=== PATIENT | male | born 1955 | race Caucasian/White ===

== ENCOUNTER → 2016-05-11 | Outpatient (CLI) | payer BC ==
[~2016-05-11] MED LIST: ASPI325T39 PO; ATOR-26 PO; METO-217 PO; MRP25 PO; ZLF/50 PO
[2016-05-11 12:53] LABS: HEMATOCRIT 40.5 % (42-52); MEAN CELL VOLUME 88.6 fL (80-100); MEAN CORPUSCULAR HEMOGLOBIN 31.3 pg (25-34); MEAN CORPUSCULAR HGB CONC 35.3 g/dl (32-36); MEAN PLATELET VOLUME 10.9 fL (7.4-10.4); PLATELET COUNT 259 K/uL (130-400); RED BLOOD COUNT 4.57 M/uL (4.7-6.1); WHITE BLOOD COUNT 6.18 K/uL (4.8-10.8)
[2016-05-11 13:06] LABS: ALT/SGPT 38 U/L (12-78); BLOOD UREA NITROGEN 17 mg/dl (7-18); BUN/CREATININE RATIO 15.5 (10-20); CALCIUM 8.9 mg/dl (8.5-10.1); CARBON DIOXIDE 25 mmol/L (21-32); CHLORIDE 107 mmol/L (98-107); GLUCOSE 99 mg/dl (70-99); POTASSIUM 4.2 mmol/L (3.5-5.1); SODIUM 141 mmol/L (136-145)
[2016-05-11 13:09] LABS: ESTIMATED AVERAGE GLUCOSE 114 mg/dl; HA1C FLAG Normal (Normal)
[2016-05-11 13:10] LABS: ALB/GLOB RATIO 1.2 (0.9-2); ALKALINE PHOSPHATASE 91 U/L (45-117); AST/SGOT 23 U/L (15-37); CHOLESTEROL 129 mg/dl (0-200); CHOLESTEROL/HDL RATIO 3.2; HDL CHOLESTEROL 40 mg/dl; LDL CHOLESTEROL CALCULATED 55 mg/dl; PROSTATE SPECIFIC ANTIGEN 0.619 ng/ml (0.000-4.000); TRIGLYCERIDES 171 mg/dl (0-150); VERY LOW DENSITY LIPOPROT CALC 34 mg/dl
== END | disposition home or self-care (01) ==
LOC: C.LABBFT 11:06
PROVIDERS: ATTEND Internal Medicine Cardiovascular Disease
DX: Z00.00 Encounter for general adult medical examination without abnormal findings (principal); K21.9 Gastro-esophageal reflux disease without esophagitis; I25.10 Atherosclerotic heart disease of native coronary artery without angina pectoris; Z12.5 Encounter for screening for malignant neoplasm of prostate; R73.01 Impaired fasting glucose

== ENCOUNTER → 2017-05-15 | Outpatient (CLI) | payer BC ==
[2017-05-15 18:00] LABS: HEMATOCRIT 39.5 % (42-52); HEMOGLOBIN 13.8 g/dL (14.0-18.0); MEAN CELL VOLUME 90.8 fL (80-100); MEAN CORPUSCULAR HEMOGLOBIN 31.7 pg (25-34); MEAN CORPUSCULAR HGB CONC 34.9 g/dl (32-36); MEAN PLATELET VOLUME 10.7 fL (7.4-10.4); PLATELET COUNT 222 K/uL (130-400); RED CELL DISTRIBUTION WIDTH CV 12.8 % (11.5-14.5); RED CELL DISTRIBUTION WIDTH SD 42.4 fL (36.4-46.3)
[2017-05-15 18:01] LABS: ALBUMIN 3.7 gm/dl (3.4-5.0); ALT/SGPT 36 U/L (12-78); AST/SGOT 24 U/L (15-37); BLOOD UREA NITROGEN 23 mg/dl (7-18); CALCIUM 8.7 mg/dl (8.5-10.1); CARBON DIOXIDE 25 mmol/L (21-32); CREATININE 1.05 mg/dl (0.60-1.40); GLUCOSE 115 mg/dl (70-99); POTASSIUM 3.8 mmol/L (3.5-5.1); SODIUM 138 mmol/L (136-145)
[2017-05-15 18:03] LABS: ALKALINE PHOSPHATASE 89 U/L (45-117); CHOLESTEROL 122 mg/dl (0-200); LDL CHOLESTEROL CALCULATED 56 mg/dl; TOTAL PROTEIN 6.8 gm/dl (6.4-8.2)
[2017-05-16 06:29] LABS: HEMOGLOBIN A1C 5.6 % (4.5-5.6)
== END | disposition home or self-care (01) ==
LOC: C.LABBFT 14:41
PROVIDERS: ATTEND Internal Medicine
DX: E78.5 Hyperlipidemia, unspecified (principal)

== ENCOUNTER → 2017-05-25 | Outpatient (CLI) | payer BC ==
[2017-05-25 17:43] LABS: BASO % 0.5 %; BASO ABS # 0.03 K/uL (0-0.2); EOS % 3.7 %; EOS ABS # 0.23 K/uL (0-0.5); HEMATOCRIT 41.1 % (42-52); HEMOGLOBIN 14.3 g/dL (14.0-18.0); IG# 0.01 K/uL (0.00-0.02); LYMPH % 33.2 %; LYMPH ABS # 2.08 K/uL (1.2-3.4); MEAN CELL VOLUME 89.9 fL (80-100); MEAN CORPUSCULAR HEMOGLOBIN 31.3 pg (25-34); MEAN CORPUSCULAR HGB CONC 34.8 g/dl (32-36); MEAN PLATELET VOLUME 10.6 fL (7.4-10.4); MONO % 10.1 %; MONO ABS # 0.63 K/uL (0.11-0.59); NEUT % 52.3 %; NEUT ABS # 3.28 K/uL (1.4-6.5); PLATELET COUNT 235 K/uL (130-400); RED CELL DISTRIBUTION WIDTH CV 12.6 % (11.5-14.5); RED CELL DISTRIBUTION WIDTH SD 41.2 fL (36.4-46.3); WHITE BLOOD COUNT 6.26 K/uL (4.8-10.8)
== END | disposition home or self-care (01) ==
LOC: C.LABBFT 15:30
PROVIDERS: ATTEND Internal Medicine
DX: D64.9 Anemia, unspecified (principal); Z12.5 Encounter for screening for malignant neoplasm of prostate

== ENCOUNTER → 2017-10-20 | Outpatient (CLI) | payer BC ==
[~2017-10-20] MED LIST changes: +ABL/5 PO; +ACET-1256 PO; +CYTM25 PO; +ESCI1TAB10 PO; -MRP25 PO; +PANT40TA PO; -ZLF/50 PO
--- NOTE | 2017-10-20 14:57 | DIAGNOSTIC IMAGING REPORT ---
CHEST 2 VIEWS ROUTINE CLINICAL HISTORY: PAT preoperative evaluation COMPARISON STUDY: 07/23/2015 FINDINGS: The bones soft tissues and hemidiaphragms are normal. The cardiomediastinal silhouette is normal. The lungs are clear. The pulmonary vasculature is normal. IMPRESSION: Negative chest. The above report was generated using voice recognition software. It may contain grammatical, syntax or spelling errors. Electronically signed by: Gibran Rodriguez M.D. 10/20/2017 2:55 PM Dictated Date/Time: 10/20/2017 2:55 PM
== END | disposition home or self-care (01) ==
LOC: C.RAD 13:59
PROVIDERS: ATTEND Orthopaedic Surgery Orthopaedic Surgery of the Spine
DX: Z01.810 Encounter for preprocedural cardiovascular examination (principal); Z01.811 Encounter for preprocedural respiratory examination; Z01.812 Encounter for preprocedural laboratory examination

== ENCOUNTER 2017-10-30 09:14 | Observation (INO) | payer BC ==
[2017-10-18 12:15] VITALS: BMI 35.0
--- NOTE | 2017-10-20 12:55 | PAT Medication Instructions ---
Service Date Oct 20, 2017. Current Home Medication List Acetaminophen (Tylenol), 1,000 MG PO Q6 PRN for Pain Aripiprazole (Abilify), 5 MG PO QPM Aspirin (Aspirin Ec), 325 MG PO QPM Atorvastatin (Lipitor), 80 MG PO HS Escitalopram Oxalate (Lexapro), 20 MG PO QAM Liothyronine Sodium (Liothyronine Sodium), 50 MCG PO QAM Metoprolol Succinate (Toprol Xl), 50 MG PO QAM Pantoprazole (Protonix), 40 MG PO QAM Medication Instructions For Your Scheduled Surgery - Check with surgeon and prescribing physician for instructions: Aspirin (Aspirin Ec), 325 MG PO QPM - Take the following medications the morning of surgery with a sip of water: Acetaminophen (Tylenol), 1,000 MG PO Q6 PRN for Pain (okay to take up to 4 hours prior to surgery if needed) Escitalopram Oxalate (Lexapro), 20 MG PO QAM Liothyronine Sodium (Liothyronine Sodium), 50 MCG PO QAM Metoprolol Succinate (Toprol Xl), 50 MG PO QAM Pantoprazole (Protonix), 40 MG PO QAM - Take the following medications as scheduled the night before surgery: Acetaminophen (Tylenol), 1,000 MG PO Q6 PRN for Pain (if needed) Aripiprazole (Abilify), 5 MG PO QPM Atorvastatin (Lipitor), 80 MG PO HS If you have any questions please call us at [phone] or [phone] or [phone]
[2017-10-20 14:12] VITALS: BMI 36.0
--- NOTE | 2017-10-27 16:58 | HISTORY & PHYSICAL EXAMINATION ---
DATE OF ADMISSION: 10/30/2017 He is being in preop for diskectomy L4-L5 lumbar. CHIEF COMPLAINT: Hip pain, leg pain, knee pain, and low back pain ongoing for several weeks, months, failing conservative care. PAST MEDICAL HISTORY: Heart disease, anxiety, high cholesterol. PAST SURGICAL HISTORY: Trigger finger release. ALLERGIES: Negative. FAMILY HISTORY: Heart disease. SOCIAL HISTORY: . Minimal alcohol. No tobacco. Active lifestyle. REVIEW OF SYSTEMS: Denies fevers, sweats, chills. Ears, nose, and throat negative. Denies chest pain, palpitations. No asthma, wheezing. No nausea, vomiting. Positive for depression. Denies skin rashes or lesions. He does have muscle pain, weakness, and cramping. MEDICATIONS: Oxycodone, cyclobenzaprine, prednisone, aspirin, Zocor, metoprolol. OBJECTIVE: GENERAL: He is 5 feet 7 inches. He is 225. He is in distress. He has back and lower extremity difficulty, sciatica, nerve root pain. VITAL SIGNS: Blood pressure 130/80, pulse 80, respirations 16. HEENT: Pupils react to light and accommodation. Ears, nose, and throat clear. CARDIAC: Normal S1, S2, no S3. LUNGS: Clear to auscultation. No rales, rhonchi, wheezing. ABDOMEN: Soft, nontender. MUSCULOSKELETAL: He has pain with flexion and extension of the spine. He has neurological deficit. He has weakness to his foot. He has gait abnormality. DIAGNOSIS: Disk herniation, lumbar spine. PLAN: Includes a diskectomy, L4-L5 lumbar spine.
[~2017-10-30] VITALS: Ht 170.2 cm; Wt 106.0 kg
[2017-10-30] VITALS (8 sets, daily range): BP systolic 127–159; BP diastolic 75–97; PULSE 61–69; TEMP 36.8–37; O2SAT 96–98; Ht 170.2 cm; Wt 106.0 kg
[~2017-10-30 09:14] MED LIST changes: +CEFAZOLIN 2000MG IV PUSH 15 ML IV SCH; +LACTATED RINGER'S 1000ML 1,000 ML IV SCH; +NSS 1000ML IV SCH
[2017-10-30] MEDS ORDERED: FENTANYL CITRATE INJ 50 MCG/1 ML 2 ML VIAL ONE ×2 (10:34→12:01)
[2017-10-30] MEDS ORDERED: MIDAZOLAM HCL 1 MG/ML 2ML VIAL ONE (10:34)
[2017-10-30] MEDS ORDERED: VANCOMYCIN HCL 1000MG/20ML VIAL ONE (11:20)
[2017-10-30] MEDS ORDERED: THROMBIN FOR SOLN 20000 UNIT KIT ONE (11:20)
[2017-10-30] MEDS ORDERED: GELATIN SPONGE SZ 100 ONE ×2 (11:20→11:26)
[2017-10-30] MEDS ORDERED: BUPIVACAINE/EPINEPHRINE 0.5% MPF 1:200,000 30 ML VIAL ONE (11:21)
[2017-10-30] MEDS ORDERED: BACITRACIN 50000 UNIT VIAL ONE (11:21)
[2017-10-30] MEDS ORDERED: ATROPINE SULFATE 0.1 MG/ML 5ML SYR IV PRN (11:30)
[2017-10-30] MEDS ORDERED: HYDROmorphone INJ 2 MG/ML SYR/VIAL IV PRN ×2 (11:30→13:30)
[2017-10-30] MEDS ORDERED: ONDANSETRON INJ 2 MG/ML 2 ML VIAL IV PRN ×2 (11:30→13:30)
[2017-10-30] MEDS ORDERED: LABETALOL HCL IV 5 MG/ML 20ML IV PRN (11:30)
--- NOTE | 2017-10-30 11:37 | History & Physical Bridge Note ---
H&P Re-Evaluation Bridge Note: I have examined the patient, reviewed the History & Physical and in the interval since the performance of the History & Physical I have noted the following changes of clinical significance: No changes noted
[2017-10-30] MEDS ORDERED: PROPOFOL IV EMULSION 10 MG/ML 20 ML VIAL ONE (12:14)
[2017-10-30] MEDS ORDERED: LIDOCAINE HCL 2% 2 ML VIAL (20MG/ML) ONE (12:14)
[2017-10-30] MEDS ORDERED: GLYCOPYRROLATE INJ 0.2 MG/ML VIAL ONE ×2 (12:14→12:50)
[2017-10-30] MEDS ORDERED: ROCURONIUM BROMIDE 10 MG/ML 5 ML VIAL ONE (12:14)
[2017-10-30] MEDS ORDERED: ONDANSETRON INJ 2 MG/ML 2 ML VIAL ONE (12:15)
[2017-10-30] MEDS ORDERED: DEXAMETHASONE SOD INJ 4 MG/ML VIAL ONE (12:15)
[2017-10-30] MEDS ORDERED: NEOSTIGMINE METHYLSULFATE 5 MG/5 ML SYR ONE (12:50)
--- NOTE | 2017-10-30 13:12 | [facility] Post Operative Brief Note ---
Immediate Operative Summary Operative Date Oct 30, 2017. Pre-Operative Diagnosis Disc Herniation L4-5 Post-Operative Diagnosis Disc Herniation L4-5 Procedure(s) Performed L4-[address] Gin Lanza Observer Electrical Prospecting Surgeon(s) Cecy Islas PA-C Estimated Blood Loss 75 cc Findings Consistent with Post-Op Diagnosis Specimens none per surgeon Anesthesia Type General
[2017-10-30] MEDS ORDERED: PROMETHAZINE HCL INJ 12.5 MG in SODIUM CHLORIDE 0.9% 50ML 50 ML IV PRN (13:30)
[2017-10-30] MEDS ORDERED: LORAZEPAM 1 MG TAB PO PRN (13:30)
[2017-10-30] MEDS ORDERED: LORAZEPAM INJ 1 MG in SYRINGE 0 ML IV PRN (13:30)
[2017-10-30] MEDS ORDERED: HYDROmorphone INJ 1 MG/ML SYR IV PRN (13:30)
[2017-10-30] MEDS ORDERED: METOCLOPRAMIDE HCL INJ 5 MG/ML 2 ML VIAL IV PRN (13:30)
[2017-10-30] MEDS ORDERED: ACETAMINOPHEN 325 MG TAB PO PRN (13:30)
[2017-10-30] MEDS ORDERED: OXYCODONE/ACETAMINOPHEN 5-325 TAB PO PRN ×2 (13:30)
[2017-10-30] MEDS ORDERED: ACETAMINOPHEN 500 MG TAB PO PRN (13:30)
[2017-10-30] MEDS ORDERED: MAGNESIUM HYDROXIDE SUSP 30 ML UDC PO PRN (13:30)
--- NOTE | 2017-10-30 13:32 | DIAGNOSTIC IMAGING REPORT ---
LUMBAR SPINE, INTRAOPERATIVE FLUOROSCOPY HISTORY: L4-L5 discectomy. FLUOROSCOPY TIME: 2 seconds. FINDINGS: Intraoperative fluoroscopy was provided for the lumbar spine. A single fluoroscopic spot image demonstrates skin retractors at the L4-5 level. IMPRESSION: Fluoroscopy provided for a L4-5 discectomy. Electronically signed by: Michael Boyle M.D. 10/30/2017 1:31 PM Dictated Date/Time: 10/30/2017 1:30 PM
--- NOTE | 2017-10-30 13:49 | Anesthesiology Progress Note ---
Anesthesia Post Op Note Date & Time Oct 30, 2017 at 13:49 Vital Signs Pain Intensity: 4 Vital Signs Past 12 Hours Date Time Temp Pulse Resp B/P (MAP) Pulse Ox O2 Delivery O2 Flow Rate FiO2 10/30/17 13:45 61 16 129/68 96 Room Air 10/30/17 13:35 74 16 125/68 98 Oxymask 3 10/30/17 13:25 62 16 124/67 100 Oxymask 5 10/30/17 13:19 36.4 70 16 129/71 100 Oxymask 5 10/30/17 09:56 36.8 66 20 156/97 (116) 96 Room Air Notes Mental Status: alert / awake / arousable, participated in evaluation Pt Amnestic to Procedure: Yes Nausea / Vomiting: adequately controlled Pain: adequately controlled Airway Patency, RR, SpO2: stable & adequate BP & HR: stable & adequate Hydration State: stable & adequate Anesthetic Complications: no major complications apparent
[2017-10-30] MEDS ORDERED: OXYC-57 PO (13:52)
--- NOTE | 2017-10-30 13:53 | Discharge Instructions ---
Discharge Instructions Date of Service Oct 30, 2017. Admission Reason for Admission: Lumbar Disc Herniation Discharge Discharge Diagnosis / Problem: same Discharge Goals Goal(s): Improve function Activity Recommendations Activity Limitations: as noted below Lifting Limitations: no more than 5 pounds Exercise/Sports Limitations: until after follow-up appointment May Resume Sexual Activity: after follow-up appointment Shower/Bathe: keep incision dry . Instructions / Follow-Up Instructions / Follow-Up MEDICATIONS: Please take your prescriptions as instructed at your pre-op appointment. SPECIAL CARE: The following information is intended to answer some of the common questions and concerns regarding your surgery. Each patient is an individual and receives individual counselling throughout the course of treatment, from diagnosis to surgery all the way through recovery. What follows is not an exhaustive list, but should be a useful guide to some of the common questions and concerns patients have regarding their surgeries. These are not provided to keep you from calling us; rather, they give you something accurate and concrete to reference as you recover from your procedure. If you need us, we are available to you. As always, if you are not sure about something, call us at [phone]. MEDICAL EMERGENCIES: For these conditions, call 911 or go to your local hospital-based Emergency Department - not [facility] or equivalent. * Paralysis * Severe chest pain or difficulty breathing * Swelling or redness of either leg Spine procedures can be rather complex and though complications are rare, they do occur. In such cases, effective advice regarding emergency situations cannot always be addressed over the telephone. You may be referred to the emergency department for more effective management of your problem. Activity Limitations: It is important to give your body time to heal, so please limit your activities : * In general, don't do anything that moves your spine too much. You should avoid contact sports, twisting or heavy lifting while you recover. * 5-10 pounds is all you should attempt to lift. * You should not plan on driving for approximately 3 weeks and you should avoid traveling more than 30-45 minutes at a time. Longer trips should be broken down with walking breaks spaced appropriately. * Physical therapy is not usually required. * Walking and good posture practices will help you recover and regain your function. * Avoid straining or sudden changes in position. * In general, the goal is to take it easy and recover. Don't cause any new problems. Just relax. Showers: * Do not take a bath, use a Jacuzzi or hot tub or otherwise submerge your incision. * It is usually safe to take a shower 4-5 days after your surgery. * Your incision does not require any special creams or ointments. * Simply clean it with soap and water, dry and re-dress with a clean bandage afterwards. Incision: * Keep incision clean, dry and protected until your first follow-up appointment. * Some amount of drainage and redness is normal. Any drainage should be fairly clear and not have a foul odor. * If you feel anything is wrong or you have excessive drainage, please call us. * Your stitches and raheel will be removed 10-14 days after your surgery. At the time of your first post-op visit. * Neck surgeries are typically closed with a suture underneath the skin. The steri-strips over the incision should be maintained until we see you in the office. Bracing: * You may be provided with a back or neck brace to encourage good posture and prevent injury. It will remind you not to do too much as you heal and will alert others to the fact that you have had a surgery. * Back braces may be removed for showers and when you are resting at home. They must be worn when you are walking around for any period of time or for travel. * For neck surgery, you will likely be provided with two cervical collars. The soft collar ([place] or foam rubber) is worn most commonly throughout the day and while sleeping. The plastic collar (provided at the hospital) is for showering/bathing. * Except while eating, collars should remain in place. More specifically, bracing is provided for a purpose and should be worn. * Please obtain your brace or collars prior to your operation and bring them to the hospital with you on the day of surgery. * You should also bring your collars to your post-op appointment with Dr. Lanza. You should always take good care of your body and practice healthy habits, especially following surgery. You should: * Follow your doctor's treatment plan * Sit and stand properly with good posture (ears over shoulders, shoulders over hips) Don't slouch * Learn to lift correctly * Exercise regularly (low-impact aerobic exercise is especially good, but check with your doctor first) * Generally, be up and walking for 5-10 minutes at a time at least 3-4 times per day from the day you get home * Increasing walking to tolerance until you can walk for 20-30 minutes at a time * Attain and maintain a healthy body weight * Eat healthy foods ( a well-balanced, low-fat diet rich in fruits and vegetables) and get enough calcium * Avoid excessive use of alcohol When to call our office - If you notice any of the following: * Increased pain not relieve by pain medicine * Fevers greater then 100 degrees F, chills or flu symptoms * Increased redness around incision * Drainage from the incision that is not clear * Any foul smelling drainage * Swelling or fluid collection beneath the skin Miscellaneous: * In the hospital, you may be given a walker or cane for support while walking. These are temporary needs and are intended to prevent injuries due to falls. You may discontinue them when you feel strong and steady enough on your feet. * Sleep in a comfortable position. We find that many patients find a lounge chair or recliner with several pillows to be beneficial in the early post-operative period. * The support stockings should be used for 7-10 days and may be discontinued when you are back to walking more and conducting usual household activities. No problem is insignificant. We are here to help you and get you well. Contact us at [phone]. Definitions: Foraminotomy: If part of the disc or a bone spur (osteophyte) is pressing on a nerve as it leaves the vertebra (through an exit called the foramen), a foraminotomy may be done. Otomy means "to make an opening." A foraminotomy is making the opening of the foramen larger, so the nerve can exit without being compressed. Laminotomy: Similar to the foraminotomy, a laminotomy makes a larger opening, this time in your bony plate protecting your spinal canal and spinal cord (the lamina). The lamina may be pressing on your nerve, so the surgeon may make more room for the nerves using a laminotomy. Laminectomy: Sometimes, a laminotomy is not sufficient. The surgeon may need to remove all or part of the lamina. This procedure is called a laminectomy. This can often be done at many levels without any harmful effects. Current Hospital Diet Patient's current hospital diet: Regular Diet Discharge Diet Recommended Diet: Regular Diet Procedures Procedures Performed: L4-5 Discectomy Pending Studies Studies pending at discharge: no Medical Emergencies . Who to Call and When: Medical Emergencies: If at any time you feel your situation is an emergency, please call 911 immediately. . Non-Emergent Contact Non-Emergency issues call your: Primary Care Provider . "Provider Documentation" section prepared by Rogers Lanza. .
[2017-10-30] MEDS ORDERED: IV FLUIDS COMPLETED PRN (14:15)
[2017-10-30] MEDS ORDERED: SODIUM CHLORIDE 0.9% 1000ML 1,000 ML IV SCH (15:00)
--- NOTE | 2017-10-30 15:05 | OPERATIVE REPORT ---
DATE OF OPERATION: 10/30/2017 PREOPERATIVE DIAGNOSES: Disk herniation lumbar spine, stenosis lumbar spine. POSTOPERATIVE DIAGNOSES: Disk herniation lumbar spine, stenosis lumbar spine. PROCEDURES: 1. Laminectomy 4-5 lumbar, complete laminectomy 5, foraminotomy, partial facetectomy. 2. Diskectomy of a free fragment lumbar spine. SURGEON: Rogers Lanza DO EDGE SETTER: Gianni Islas PA-C ESTIMATED BLOOD LOSS: 75 mL. COMPLICATIONS: Zero. DESCRIPTION OF PROCEDURE: The patient was taken to the operating room, a general intubated anesthetic provided to the patient, placed prone, scrubbed, prepped and draped sterile. We made a skin incision, fascial incision down to the 4-5 interspace marked it with the fluoroscopy. We cut down to the lamina. There was complete overlying of bone to the lamina. The interspace was essentially vacant and covered with a hard bone. We had to actually take a shantal and shantal down the lamina to gain access. I then came down from above and up from below and did a laminotomy and laminectomy on the affected left hand side. We then completed a complete foraminotomy. The nerve root was completely compressed. We got out laterally, retracted the dura medially. We piecemealed out a large amount of disk material probed underneath the nerve. Under visualization and palpation, there was no longer any disk material impeding the nerve. We actually saw the nerve start to pink up and regain some normalcy. We irrigated and closed in layers with one Vicryl 2-0 and 3-0 nylon on the skin over a Hemovac drain over vancomycin powder. Sterile dressings applied. The patient returned supine, extubated to PACU stable. No apparent complications. I attest to the content of the Intraoperative Record and any orders documented therein. Any exception s are noted below.
[2017-10-30] MEDS: KETOROLAC TROMETHAMINE 30 MG/ML VIAL IV SCH ×2 (15:47→20:45)
[2017-10-30] MEDS: CEFAZOLIN IV 2,000 MG in SYRINGE 0 ML IV SCH (20:44)
[2017-10-30] MEDS ORDERED: ASPIRIN 325 MG ECTAB PO SCH (21:00)
[2017-10-30] MEDS ORDERED: ATORVASTATIN 40 MG TAB PO SCH (21:00)
[2017-10-30] MEDS ORDERED: ARIPIprazole TAB 5 MG TAB PO SCH (21:00)
[2017-10-30] MEDS: DEXAMETHASONE INJ 10 MG in SYRINGE 0 ML IV SCH (21:05)
[2017-10-30] MEDS ORDERED: NURSING VERBAL MED ORDER ONE (21:30)
[2017-10-31] MEDS: CEFAZOLIN IV 2,000 MG in SYRINGE 0 ML IV SCH (03:30)
[2017-10-31] MEDS: KETOROLAC TROMETHAMINE 30 MG/ML VIAL IV SCH ×2 (03:31→09:34)
[2017-10-31 03:35] VITALS: BP 149/78; PULSE 72; TEMP 37; O2SAT 95
[2017-10-31] MEDS: DEXAMETHASONE INJ 10 MG in SYRINGE 0 ML IV SCH (05:47)
[2017-10-31] MEDS ORDERED: BISACODYL 5 MG TABEC PO PRN (06:00)
[2017-10-31] MEDS ORDERED: BISACODYL 10 MG SUPP PR PRN (06:00)
[2017-10-31 07:30] VITALS: BP 137/87; PULSE 80; TEMP 36.8; O2SAT 96
[2017-10-31] MEDS ORDERED: ESCITALOPRAM OXALATE 20 MG TAB PO SCH (09:00)
[2017-10-31] MEDS ORDERED: METOPROLOL SUCC 50MG EXT REL TAB PO SCH (09:00)
[2017-10-31] MEDS ORDERED: LIOTHYRONINE SODIUM 25 MCG TAB PO SCH (09:00)
[2017-10-31] MEDS ORDERED: PANTOprazole SOD 40 MG TAB PO SCH (09:00)
[2017-10-31] MEDS ORDERED: POLYETHYLENE (MIRALAX) 17 GM PACK PO SCH (09:00)
--- NOTE | 2017-10-31 09:09 | DISCHARGE SUMMARY ---
DATE OF DISCHARGE: 10/31/17 HISTORY OF PRESENT ILLNESS: Post op spinal surgery. Doing well, still on a short run. Better motion, decreased pain, good functional ability, minimal complaints. ASSESSMENT: Status post lumbar spinal surgery. PLAN: Includes discharge home later today. Instructions, precautions provided. Followup examination in about 10 days and prescriptions on his chart.
[2017-10-31 11:32] VITALS: BP 137/87; PULSE 80; TEMP 36.8; O2SAT 96
[2017-10-31 11:43] VITALS: BP 165/98; PULSE 70; TEMP 36.9; O2SAT 96
== END 2017-10-31 13:06 | disposition home or self-care (01) ==
LOC: C.ACU 09:14 → C.3E 13:22 → ENRESERV 13:59
PROVIDERS: ADMIT Orthopaedic Surgery Orthopaedic Surgery of the Spine; ATTEND Orthopaedic Surgery Orthopaedic Surgery of the Spine
DX: M51.27 Other intervertebral disc displacement, lumbosacral region (principal); M48.061 Spinal stenosis, lumbar region without neurogenic claudication; I25.10 Atherosclerotic heart disease of native coronary artery without angina pectoris; I10 Essential (primary) hypertension; E03.9 Hypothyroidism, unspecified; F32.9 Major depressive disorder, single episode, unspecified; F41.9 Anxiety disorder, unspecified; E78.5 Hyperlipidemia, unspecified; E66.9 Obesity, unspecified; Z68.37 Body mass index [BMI] 37.0-37.9, adult; I25.2 Old myocardial infarction; Z79.899 Other long term (current) drug therapy; Z79.82 Long term (current) use of aspirin; K21.9 Gastro-esophageal reflux disease without esophagitis